=== PATIENT | female | born 1995 | race Caucasian/White ===

== ENCOUNTER 2024-11-19 23:11 | Emergency (ER) | payer OTHER, SELFPAY ==
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
[2024-11-19 23:17] VITALS: BP 106/74; PULSE 110; O2SAT 98
[2024-11-19 23:18] VITALS: BP 112/59; PULSE 110; RESP 20; TEMP 36.7; O2SAT 98; BMI 30.9
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
[2024-11-20 00:50] VITALS: BP 121/76; PULSE 90; RESP 16; TEMP 36.7; O2SAT 100
== END 2024-11-20 00:51 | disposition home or self-care (01) ==
PROVIDERS: Emergency Provider Internal Medicine; PCP Physician Assistant
DX: Z04.1 Encounter for examination and observation following transport accident (principal); F10.920 Alcohol use, unspecified with intoxication, uncomplicated; Y90.9 Presence of alcohol in blood, level not specified; R22.0 Localized swelling, mass and lump, head
CPT/HCPCS: 70450; 72125; 99282; 99284

== ENCOUNTER → 2024-11-19 23:50 | Outpatient (BNV) | payer OTHER, SELFPAY | PROVIDERS: Emergency Provider Internal Medicine; PCP Physician Assistant; Visit Provider Radiology Diagnostic Radiology | DX: M50.80 Other cervical disc disorders, unspecified cervical region (principal); S09.90XA Unspecified injury of head, initial encounter; V89.2XXA Person injured in unspecified motor-vehicle accident, traffic, initial encounter | CPT/HCPCS: 70450; 72125 ==